=== PATIENT | female | born 1935 | race Caucasian/White ===

== ENCOUNTER 2021-11-18 13:00 | Outpatient (CLI) | payer MEDICARE, SELFPAY ==
[2021-11-18 14:50] LABS: SARS-CoV-2 RNA PCR Positive (Negative)
== END 2021-11-18 13:01 | disposition home or self-care (01) ==
LOC: CHSLAB 13:03
PROVIDERS: PCP Internal Medicine; Visit Provider Physician Assistant
DX: U07.1 COVID-19 (principal); R68.89 Other general symptoms and signs
CPT/HCPCS: C9803; U0003; U0005

== ENCOUNTER 2021-11-23 07:15 | Outpatient (RCR) | payer MEDICARE, SELFPAY ==
[2021-11-23] MEDS: ACETAMINOPHEN 325 MG TABLET 650 MG PO (10:14)
[2021-11-23] MEDS: FAMOTIDINE 20 MG TABLET PO (10:15)
[2021-11-23] MEDS: diphenhydrAMINE HCl CAP 25 MG CAPSULE PO (10:15)
[2021-11-23 10:16] VITALS: BP 133/69; PULSE 84; TEMP 36.8; O2SAT 97
[2021-11-23 11:41] VITALS: BP 118/64
== END 2021-11-23 17:00 ==
LOC: AMCINF 07:15
PROVIDERS: PCP Physician Assistant; Referring Provider Physician Assistant; Visit Provider Internal Medicine Hematology & Oncology
DX: U07.1 COVID-19 (principal)
CPT/HCPCS: A9270; M0247

== ENCOUNTER 2022-03-07 15:06 | Outpatient (CLI) | payer MEDICARE, SELFPAY ==
--- NOTE | ~2022-03-07 | XR_ITS ---
EXAMINATION: XR hip LT min 2V DATE: 03/07/2022 15:43 INDICATION: Posterior left leg pain. TECHNIQUE: 2 views of left hip were obtained. COMPARISON: None. FINDINGS: Bone alignment is normal. No fracture. 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 IMPRESSION: 1. Mild left hip osteoarthritis. Reviewed, dictated and finalized at location B.
--- NOTE | ~2022-03-07 | XR_ITS ---
EXAMINATION: XR ankle LT 2V DATE: 03/07/2022 15:43 INDICATION: Posterior left leg pain TECHNIQUE: Anteroposterior and lateral views of the left ankle were obtained. COMPARISON: None. FINDINGS: Alignment is normal. No fracture. Joint spaces are well maintained. Small Achilles and plantar calca lela spurs. No ankle joint effusion. The soft tissues are unremarkable. IMPRESSION: 1. Small Achilles and plantar calcaneal spurs. Reviewed, dictated and finalized at location A.
--- NOTE | ~2022-03-07 | XR_ITS ---
EXAMINATION: XR knee LT 3V DATE: 03/07/2022 15:44 INDICATION: Left leg pain. TECHNIQUE: 3 views of left knee were obtained. COMPARISON: None. FINDINGS: Bone alignment is normal. No fracture. There is mild osteoarthritis of lateral and patellof emoral compartments characterized by tiny osteophytes. No joint space narrowing. No knee joint effusi on. IMPRESSION: 1. Mild left knee osteoarthritis. Reviewed, dictated and finalized at location B.
== END 2022-03-07 15:07 | disposition home or self-care (01) ==
LOC: CHSIMG 15:09
PROVIDERS: PCP Internal Medicine; Visit Provider Internal Medicine
DX: M79.605 Pain in left leg (principal); M25.562 Pain in left knee; M25.572 Pain in left ankle and joints of left foot; M25.552 Pain in left hip
CPT/HCPCS: 73502; 73562; 73600

== ENCOUNTER 2022-03-14 16:49 | Outpatient (RCR) | payer MEDICARE, SELFPAY ==
--- NOTE | 2022-03-14 17:47 | PTOPEVAL ---
Thank you for referring Sandy Michaud to [facility].? The patient is scheduled to be seen for therapy? __2__x/week for 12 visits. Please review, sign, date and return this plan of care KRISTEN. I agree with and certify that the following plan of care is medically necessary. Referring Physician Date Admitting Provider: Attending Provider: Dawood Smith DO Referring Provider: *PT Outpatient Evaluation Start: 03/14/22 16:58 Freq: Status: Active Protocol: Document 03/14/22 16:58 TARAS (Rec: 03/14/22 17:46 [email or web address] [id number]) Therapy Assessment Status Assessment Status Assessment Status Evaluation Outpatient Past Medical History Gastrointestinal History Hx Cholecystectomy Yes Musculoskeletal History Hx Orthopedic Surgery Yes: right shoulder HEENT History Hx Other HEENT Disorders Yes: lymph node removed from left neck Reproductive History Hx Post Menopausal Yes Evaluation Information Problem Diagnosis left leg pain Onset 11/20/21 Subjective Information Pt. reports she developed left Query Text:As Reported By Patient/ leg pain in November. 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 she describes pain from the buttock down to the left foot. She reports that she does notice a tingling in the top part of the left foot. She reports that she has had xray of her hip, knee and ankle. She states that her pain is not present with sitting and only with standing . The tingling in her foot is more notable with laying on her back. She reports tingling with ease with laying on her side with knees bent. She reports that Pain Assessment Timing of Pain Assessment Timing of Pain Assessment Pre-Treatment Pain Scale Pain Scale Used Numeric (1 - 10) Self Report Pain Assessment Left Leg(s) Reported Pain Level 8 Lowest Pain Intensity 1 Greatest Pain Intensity 8 Pain Aggravating Factors Bending,Walking,Weight Bearing /Standing Pain Score Pain Score 8: Self Report Interventions Used Interventions Used By Clinicians Exercise Cervical and Lumbar ROM Lumbar ROM Lumbar Flexion Active Ankle
== END 2022-05-02 15:25 | disposition home or self-care (01) ==
LOC: CHSPT 16:49
PROVIDERS: Visit Provider Internal Medicine
DX: M79.605 Pain in left leg (principal)
CPT/HCPCS: 97012; 97110; 97140; 97161; 97530

== ENCOUNTER 2022-11-14 11:02 | Emergency (ER) | payer MEDICARE, SELFPAY ==
[2022-11-14 11:10] VITALS: BP 131/100; PULSE 71; RESP 14; TEMP 37; O2SAT 98
--- NOTE | 2022-11-14 11:57 | ED.EXTPRO ---
HPI - Extremity Problem General Chief complaint: Extremity Problem,Nontraumatic Stated complaint: left side butt pain down to left leg Time Seen by Provider: 11/14/22 11:34 History of Present Illness HPI Narrative: Pt presents with pain in left low back and down back of left buttock and into left leg and heel. Pt says it started in her low back but now is in her left buttock and leg. Pt denies problems with bladder or bowels and denies weakness or numbness in leg. Related Data Home Medications Medication Instructions Recorded Confirmed ginkgo biloba 60 mg capsule 60 mg PO BID 12/16/19 08/10/22 multivitamin 1 cap PO DAILY 12/16/19 01/25/22 omega-3 fatty acids 1,000 mg 1,000 mg PO DAILY 12/16/19 08/10/22 capsule (Fish Oil Concentrate) polyethylene glycol 3350 17 17 gm PO DAILY 12/16/19 08/10/22 gram/dose oral powder (Miralax) biotin 5,000 mcg disintegrating 10,000 mcg PO DAILY 06/02/20 08/10/22 tablet cholecalciferol (vitamin D3) 50 50 mcg PO DAILY 06/02/20 08/10/22 mcg (2,000 unit) capsule mecobalamin (vitamin B12) 5,000 5,000 mcg PO .qd 06/02/20 08/10/22 mcg disintegrating tablet ascorbic acid (vitamin C) 1,000 mg See Rx Instructions PO DAILY 12/08/20 08/10/22 tablet Optimal PC PO 08/09/22 08/10/22 PHTYO Santosh Night PO 08/09/22 08/10/22 Minerva Selenomethionine PO 08/09/22 08/10/22 cod liver oil 5 ml PO DAILY 08/09/22 08/10/22 Allergies Allergy/AdvReac Type Severity Reaction Status Date / Time levofloxacin Allergy Intermediate kept pt up Verified 11/14/22 11:22 all night omeprazole Allergy Mild Unknown Verified 11/14/22 11:22 cephalexin Allergy Unknown Verified 11/14/22 11:22 doxycycline Allergy Nausea and Verified 11/14/22 11:22 Vomiting Review of Systems Review of Systems: All systems reviewed & are unremarkable except as noted in HPI and below PMFSH Family History Family History Mother Patient's mother is Father Patient's father is Social History Social History Smoking status: Never smoker Second hand tobacco smoke exposure: No Alcohol intake: never Substance use: never Exam Const: General: healthy appearing Nutritional Appearance: well nourished Orientation/consciousness: patient oriented x3 Limitations: no limitations Resp: Effort & Inspection: normal respiratory effort Cardio: Rate: regular rate Rhythm: regular rhythm GI: GI Palp: Yes Soft to palpation and No Tenderness to palpation present (GI) Auscultation: normal bowel sounds Back/Spine/Pelvis: Other: tender left lowe sacral area to palpation also end left scatic groove in buttocks Skin: General skin exam: normal color Rashes: no rashes Neuro: General: patient oriented x3, moves all extremities, no meningeal signs, no focal motor deficits and CN's II-XI intact bilaterally Speech: normal speech Gait exam (Neuro): Normal gait present (antalgic) Other: slr neg Extrem: General: normal to inspection and no clubbing, cyanosis or edema Psych: Mental Status: mental status grossly normal Affect: normal affect Attitude: cooperative Course Vital Signs Vital signs: Vital Signs Temperature 98.6 F 11/14/22 11:10 Pulse Rate 71 11/14/22 11:10 Respiratory Rate 14 11/14/22 11:10 Blood Pressure 131/100 H 11/14/22 11:10 Pulse Oximetry 98 11/14/22 11:10 Temperature 98.6 F 11/14/22 11:10 Pulse Rate 71 11/14/22 11:10 Respiratory Rate 14 11/14/22 11:10 Blood Pressure 131/100 H 11/14/22 11:10 Pulse Oximetry 98 11/14/22 11:10 Discharge Plan Discharge Clinical Impression: Sciatica associated with disorder of lumbosacral spine Patient Disposition: Home, Self-Care Condition: Stable Instructions: Antibiotic Form, Sciatica (ED), Lumbar Radiculopathy (ED) Prescriptions: New methylprednisolone [Medrol (Fidencio)] 4 mg
== END 2022-11-14 12:19 | disposition home or self-care (01) ==
PROVIDERS: Emergency Provider Emergency Medicine; PCP Internal Medicine
DX: M51.17 Intervertebral disc disorders with radiculopathy, lumbosacral region (principal)
CPT/HCPCS: 99283

== ENCOUNTER 2022-11-18 10:40 | Outpatient (CLI) | payer MEDICARE, SELFPAY ==
--- NOTE | ~2022-11-18 | MR_ITS ---
MRI of the lumbar spine Clinical History: Back pain Technique: Axial T2-weighted images, and sagittal T1-weighted, T2-weighted, and T2 fat-sat images wer e acquired. Findings: There is no fracture or subluxation of the lumbar spine. Vertebral bodies maintain normal h eight and alignment. There are mild reactive marrow signal changes due to degenerative disc disease, particularly about the L2-L3 disc space. At L1-L2, there is disc bulge, with small superimposed superior disc extrusion, and mild facet arthro aureliano. No miguel spinal canal stenosis. There is probable minimal left neural foraminal narrowing. At L2-L3, there is diffuse disc bulge with facet arthropathy, contributing to mild thecal sac vicente marisela. Bilateral neural foramina are minimally narrowed. At L3-L4, disc bulge and facet arthropathy are present. No miguel spinal canal stenosis. There is mild right neural foraminal narrowing. Left neural foramen preserved. At L4-L5, disc protrusion centrally with left-sided eccentric disc bulge is present. In conjunction w ith facet arthropathy, these factors contribute to moderate to severe thecal sac compression focally. There is minimal left neural foraminal narrowing. Right neural foramen preserved. At L5-S1, there is no disc bulge or herniation. No spinal canal stenosis or neural foraminal narrowin g. Paravertebral soft tissues are unremarkable. Impression: Mild degenerative spondylosis overall, as detailed above. There is moderate to severe thecal sac comp ression focally at L4-L5, and mild thecal sac compression at L2-L3. Multilevel neural foraminal narro wing, as detailed above. Reviewed, dictated and finalized at [facility]. 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 There is moderate to severe thecal sac compression focally at L4-L5, and mild thecal sac compression at L2-L3. Multilevel neural foraminal narrowing, as detailed above.
== END 2022-11-18 10:41 | disposition home or self-care (01) ==
PROVIDERS: PCP Internal Medicine; Visit Provider Internal Medicine
DX: M54.10 Radiculopathy, site unspecified (principal); M43.06 Spondylolysis, lumbar region
CPT/HCPCS: 72148

== ENCOUNTER 2023-01-13 16:20 | Outpatient (RCR) | payer MEDICARE, SELFPAY ==
--- NOTE | 2023-01-13 17:28 | PTOPEVAL1 ---
Assessment and note entered by JT File, PT Evaluation Information Assessment Status Evaluation Diagnosis lumbar radiculopathy Onset 11/08/22 Subjective Information patient reports prior to this past monday she was having more severe pain, but since cleaning house on monday of this week she is feeling better. she reports her pain began on 11/08/22 while puting her pants on. she reports she had immediate severe pain in the lower back, and she was unable to lay on her stomach. she reports she bent forward to put the R LE into her pants leg and felt immediate severe pain in the lower back and down the L LE. she reports she continues to have symptoms down the L LE. she reports they are far less now. she reports she has had an mri of the lumbar spine (bulging disc). she reports she is seeing pain management. she reports she has not tried laying on her stomach since injury. she reports she has increased pain/symptoms with standing. Reported Pain Level Pain Score 1: Self Report Assessment PT Clinical Summary mrs. luna is an 87 yo woman who presents to skilled PT services for evaluation and treatment of L lumbar radiculopathy. she presents this date with signs and symptoms consistent with an L4/L5 L lumbar radiculopathy from a flexion injury. she presents with pain, decreased rom, decreased strength/core stability, and needing education on proper lifting mechanics. she would benefit from skilled PT to improve her objective/funcitonal deficits and progress towards a return to her prior level functional activity performance/ quality of life. Plan of Care Interventions Electrical Stimulation,Gait Training,Hot Pack/Cold Pack,Manual Therapy,Neuro Re-education,Patient/ Caregiver Educati,Therapeutic Activities, Therapeutic Exercise PT Services Indicated Yes Treatment Frequency and 3x weekly for 6 visits Duration These treatments will address the objective and functional deficits as defined above. The patient will be advanced safely and appropriately in order for the patient to progress towards his/her prior level of function. Additional exercises will be introduced and as well as a comprehensive home exercise program upon discharge, if needed, ?to ensure carryover of functional gains achieved in the clinic. This treatment plan has been reviewed and agreement upon by the patient.
--- NOTE | 2023-01-27 17:38 | PTOPDC ---
Assessment and note entered by Kayla Hurd DPT Evaluation Information Assessment Status Re-evaluation Diagnosis lumbar radiculopathy Onset 11/08/22 Subjective Information patient reports she has not noticed pain at all except when she is first laying down at night. She reports she can do all ADLs at PLOF. No sleep disturbance due to pain. Reported Pain Level Pain Score 0: Self Report Assessment PT Clinical Summary Patient has been seen for 6 visits from 01/13/23-09/11. Patient made significant progress towards all goals and met all goals besides hip abduction strength at this time. Patient reports return to ADLs at PLOF and also reports independence with HEP. Patient is appropriate for DC at this time. Plan of Care PT Services Indicated No Treatment Frequency and DC to independent HEP Duration
== END 2023-01-27 11:24 | disposition home or self-care (01) ==
LOC: CHSPT 16:20
PROVIDERS: Visit Provider Nurse Practitioner Family
DX: M54.16 Radiculopathy, lumbar region (principal)
CPT/HCPCS: 97014; 97110; 97161; 97530; G0283